=== PATIENT | male | born 1960 | race Caucasian/White ===

== ENCOUNTER 2020-07-13 08:00 | Outpatient (RCR) | payer BC, OTHER, SELFPAY ==
[2020-07-13] MEDS: COVID-19 VACC, MRNA(PFIZER)/PF 30 MCG/0.3 ML SYRINGE IM (15:29)
[2020-08-03] MEDS: COVID-19 VACC, MRNA(PFIZER)/PF 30 MCG/0.3 ML SYRINGE IM (15:05)
== END 2020-07-13 23:59 ==
LOC: IMMUN 08:00
PROVIDERS: Visit Provider Family Medicine
DX: Z23 Encounter for immunization (principal)
CPT/HCPCS: 0001A; 0002A; 91300